=== PATIENT | male | born 1925 | race Caucasian/White ===

== ENCOUNTER 2016-07-01 20:31 | Emergency (ER) | payer BC ==
[2015-12-12 22:53] VITALS: TEMP 97.7
[2015-12-13 08:00] VITALS: BP 144/66; PULSE 70; RESP 18
[~2016-07-01] VITALS: Ht 188 cm; Wt 79.5 kg
[~2016-07-01 20:31] MED LIST: AMLO-145 PO; HYD25 PO; LEVO150T67 PO; LISI20TA11 PO; POLY17PO6 PO; POTA20TA78 PO; TAMS-14 PO
[2016-07-01 20:37] VITALS: Ht 188 cm; Wt 79.5 kg
[2016-07-01] MEDS ORDERED: SENN-53 PO (20:50)
[2016-07-01] MEDS ORDERED: DOCU-144 PO (20:50)
[2016-07-01] MEDS ORDERED: LIDOCAINE 2% VISC 15 ML CUP TOP ONE (21:00)
--- NOTE | 2016-07-01 22:05 | ERD ---
ER Documentation Chief Complaint Date/Time DATE: 07/01/16 TIME: 22:03 Chief Complaint prolapse bowel, no bleeding reported,hx prolapse bowel HPI Patient is an 89-year-old male with a history of previous prolapsed rectum who presents with a prolapsed rectum. It happened 6:30 PM when he was having a bowel movement. He said that he strained to have a bowel movement and it happened. He has a history of this happening in the past. He has had surgery in the past to try to correct this but he has had repeat episodes. He was brought in by ambulance. Upon review of old medical records this is the patient 's seventh visit to the ER since 2006. His primary doctor is Dr. Duvall. ROS All systems reviewed and are negative except as per history of present illness. Medications Home Meds Active Scripts Sennosides* (Senna Lax*) 8.6 Mg Tablet, 1 TAB PO DAILY, #30 TAB Prov:LINDA ROMO MD 07/01/16 Docusate Sodium* (Colace*) 100 Mg Capsule, 100 MG PO TID, #30 CAP Prov:LINDA ROMO MD 07/01/16 Lisinopril* (Lisinopril*) 20 Mg Tablet, 40 MG PO DAILY for 90 Days, #90 TAB Prov:RICKEY ROSARIO MD 12/13/15 Polyethylene Glycol* (Miralax*) 17 Gm Powd.pack, 17 GM PO DAILY for 90 Days, # 90 BOTTLE 3 Refills Prov:RICKEY ROSARIO MD 12/13/15 Hydrochlorothiazide* (Hydrochlorothiazide*) 25 Mg Tab, 25 MG PO DAILY for 90 Days, #90 TAB Prov:RICKEY ROSARIO MD 12/13/15 Reported Medications Levothyroxine Sodium* (Levothyroxine Sodium*) 150 Mcg Tablet, 150 MCG PO BEFORE BREAKFAST, #30 TAB 12/12/15 Tamsulosin Hcl* (Flomax*) 0.4 Mg Cap.sr.24h, 0.4 MG PO DAILY 12/16/10 Potassium Chloride (Potassium Chloride) 20 Meq Tab.prt.sr, 20 MEQ PO BID 12/16/10 Amlodipine Besylate* (Amlodipine Besylate*) 5 Mg Tablet, 5 MG PO DAILY 12/16/10 Allergies Allergies: Coded Allergies: No Known Allergy (Verified , 10/21/16) PMhx/Soc History of Surgery: Yes (rectal surgery,pacemaker placement) Anesthesia Reaction: No Hx Neurological Disorder: Yes (polio) Hx Respiratory Disorders: No Hx Cardiac Disorders: No Hx Psychiatric Problems: No Hx Miscellaneous Medical Probl: No Hx Alcohol Use: No Hx Substance Use: No Hx Tobacco Use: No Smoking Status: Never smoker FmHx Family History: No diabetes Physical Exam Vitals Vital Signs Date Time Temp Pulse Resp B/P Pulse Ox O2 Delivery O2 Flow Rate FiO2 07/01/16 20:37 97.8 82 18 141/67 96 Physical Exam Const: No acute distress Head: Atraumatic Eyes: Normal Conjunctiva ENT: Normal External Ears, Nose and Mouth. Neck: Full range of motion..~ No meningismus. Resp: Clear to auscultation bilaterally Cardio: Regular rate and rhythm, no murmurs Abd: Soft, non tender, non distended. Normal bowel sounds Skin: No petechiae or rashes Back: No midline or flank tenderness Ext: No cyanosis, or edema Neur: Patient has difficulty with movement of the lower extremities Rectal: Patient has an obvious prolapse of the rectum. There is no active bleeding. Results 24 hrs Current Medications Medications (Trade) Dose Ordered Sig/Brunilda Route PRN Reason Start Time Stop Time Status Last Admin Dose Admin Lidocaine (Xylocaine (Viscous)) 15 ml ONCE ONCE TOP 07/01/16 21:00 07/01/16 21:01 DC Procedures/MDM Reduction of rectal prolapse: I was able to use gentle pressure and reduce the rectal prolapse without difficulty. The patient had no pain. He tolerated the entire procedure. There is no bleeding. Patient is a 89-year-old male with history of rectal prolapse who presents with rectal prolapse. I was able to reduce the rectal prolapse at the bedside without difficulty. The patient will be given a prescription for Colace and Senokot for stool softening because I believe he had a rectal prolapse from straining to have a bowel movement. He will be discharged by ambulance back to his living facility. Departure Diagnosis: Primary Impression: Rectal prolapse Condition: Fair Patient Instructions: Rectal Prolapse Additional Instructions: Call your primary care doctor TOMORROW for an appointment during the next 1 WEEK.Tell the elementary secretary that you were referred from this facility.See the doctor sooner or return here if your condition worsens before your appointment time. LINDA ROMO MD July 01, 2016 22:05
== END 2016-07-01 22:19 | disposition home or self-care (01) ==
LOC: E/R 20:31
DX: K62.3 Rectal prolapse (principal); E03.9 Hypothyroidism, unspecified
CPT/HCPCS: 99284